=== PATIENT | male | born 1965 | race Caucasian/White ===

== ENCOUNTER 2016-06-02 13:47 | Outpatient (CLI) | payer OTHER ==
--- NOTE | 2016-06-02 16:40 | RAD ---
LUMBAR SPINE THREE VIEWS: History: Disability evaluation. Comparison: None. FINDINGS: Three views lumbar spine. Five lumbar type vertebral bodies. The vertebral body height is maintained. No fractures. No spondyl olisthesis or spondylolysis. Mild loss of disc space height at L4-5 and L5-S1. IMPRESSION: Moderate degenerative changes of lower lumbar spine. MRI if clinically warranted. POS: [id number]
== END 2016-06-02 13:48 | disposition home or self-care (01) ==
LOC: NAV RAD 13:47
PROVIDERS: ATTEND Family Medicine
DX: Z02.71 Encounter for disability determination (principal)
CPT/HCPCS: 72100

== ENCOUNTER 2020-07-19 12:19 | Emergency (ER) | payer OTHER, MEDICARE ==
[2020-07-19] MEDS ORDERED: Boostrix 0.5 ML (Tdap) VIAL ONE (12:53)
== END 2020-07-19 13:10 | disposition home or self-care (01) ==
LOC: NAV ERS 12:19
DX: S91.332A Puncture wound without foreign body, left foot, initial encounter (principal); W54.0XXA Bitten by dog, initial encounter
CPT/HCPCS: 90471; 90715

== ENCOUNTER 2020-07-20 11:47 | Emergency (ER) | payer OTHER, SELFPAY ==
[2020-07-20] MEDS ORDERED: Rabies Vaccine Human 2.5 UNITS VIAL ONE ×2 (12:24→12:28)
== END 2020-07-20 13:26 | disposition home or self-care (01) ==
LOC: NAV ERS 11:47
DX: S81.852A Open bite, left lower leg, initial encounter (principal); S81.851A Open bite, right lower leg, initial encounter; S61.452A Open bite of left hand, initial encounter; W54.0XXA Bitten by dog, initial encounter
CPT/HCPCS: 90375; 90471; 90675; 96372